=== PATIENT | male | born 1990 | race Caucasian/White ===

== ENCOUNTER 2022-10-06 21:09 | Day surgery (SDC) | payer SELFPAY ==
[2022-10-06 21:44] LABS: APPEARANCE,URINE SLT CLOUDY; BILIRUBIN,URINE NEGATIVE (NEGATIVE); COLOR,URINE YELLOW; GLUCOSE,URINE NEGATIVE (NEGATIVE); KETONES,URINE NEGATIVE (NEGATIVE); LEUKOCYTE ESTERASE,URINE NEGATIVE (NEGATIVE); NITRITE,URINE NEGATIVE (NEGATIVE); OCCULT BLOOD,URINE NEGATIVE (NEGATIVE); PH,URINE 7.5 (5.0-8.0); PROTEIN,URINE NEGATIVE (NEGATIVE); UROBILINOGEN,URINE 0.2 EU/dL (<2.0)
[2022-10-06 21:45] LABS: BASOPHILS PERCENT AUTO 0.1 % (0.0-1.5); EOSINOPHILS PERCENT AUTO 0.3 % (0.0-7.0); HEMATOCRIT 44.6 % (38.0-50.0); HEMOGLOBIN 15.2 g/dL (13.0-17.0); LYMPHOCYTES PERCENT AUTO 13.5 % (16.0-40.0); MEAN CORPUSCULAR HGB CONC 34.1 g/dL (31.0-37.0); MEAN CORPUSCULAR VOLUME 90.8 fL (80.0-98.0); MONOCYTES ABSOLUTE AUTO 0.8 K/uL (0.0-0.8); MONOCYTES PERCENT AUTO 5.6 % (0.0-15.0); NEUTROPHILS PERCENT AUTO 80.5 % (48.0-80.0); NRBC ABSOLUTE 0 K/uL; PLATELET COUNT,PLT 297 K/uL (150-400); RED BLOOD CELL COUNT 4.91 M/uL (4.50-5.90); WHITE BLOOD CELL COUNT,WBC 14.85 K/uL (4.0-11.0)
[2022-10-06] MEDS ORDERED: Ondansetron 4 MG/2 ML SDV IVPUSH ONE (21:53)
[2022-10-06] MEDS ORDERED: Famotidine 20 MG Tab PO ONE (21:54)
[2022-10-06] MEDS ORDERED: Sodium Chloride 0.9% 1,000 ML IV ONE (21:55)
[2022-10-06] MEDS: Morphine 4 MG/ML Syringe IVPUSH PRN (22:03)
[2022-10-06 22:15] LABS: A/G RATIO 1.1 (0.9-1.6); BILIRUBIN TOTAL 0.4 mg/dL (0.2-1.0); CALCIUM 8.9 mg/dL (8.5-10.1); CARBON DIOXIDE,CO2 27.5 mmol/L (21.0-32.0); CREATININE 1.1 mg/dL (0.8-1.3); PROTEIN TOTAL,TP 7.8 g/dL (6.4-8.2)
[2022-10-06] MEDS ORDERED: Iopamidol 755 MG/ML 500 ML Multipack Bottle IVPUSH ONE (22:32)
[2022-10-06] MEDS ORDERED: Sodium Chloride 0.9% 1,000 ML IV STA (23:48)
[2022-10-06] MEDS ORDERED: HYDROmorphone 1 MG/ML Syringe IVPUSH PRN (23:56)
[2022-10-06] MEDS ORDERED: Ondansetron 4 MG/2 ML SDV IVPUSH PRN (23:56)
[2022-10-06] MEDS ORDERED: diphenhydrAMINE 50 MG/ML SDV IVPUSH PRN (23:57)
[2022-10-07] MEDS: Piperacillin/Tazobactam 3.375 GM in Sodium Chloride 0.9% 100 ML IV SCH ×3 (00:05→11:48)
[2022-10-07] MEDS: Morphine 4 MG/ML Syringe IVPUSH PRN ×2 (00:10→03:31)
[2022-10-07] MEDS: Lactated Ringers 1,000 ML IV SCH ×2 (00:39→10:21)
[2022-10-07] MEDS ORDERED: Albuterol 0.083% 2.5 MG/3 ML Neb Soln NEB PRN (07:22)
[2022-10-07] MEDS ORDERED: Naloxone 0.4 MG/ML SDV IVPUSH PRN (07:22)
[2022-10-07] MEDS ORDERED: Morphine 2 MG/ML SYRINGE IVPUSH PRN (07:22)
[2022-10-07] MEDS ORDERED: droPERidol 5 MG/2 ML SDV IVPUSH PRN (07:22)
[2022-10-07] MEDS ORDERED: Metoclopramide 10 MG/2 ML SDV IVPUSH PRN (07:22)
[2022-10-07] MEDS ORDERED: HYDROmorphone 1 MG/ML Syringe IVPUSH PRN (07:22)
[2022-10-07] MEDS ORDERED: Ondansetron 4 MG/2 ML SDV IVPUSH PRN (07:22)
[2022-10-07] MEDS ORDERED: fentaNYL 50 MCG/ML SDV IVPUSH PRN (07:22)
[2022-10-07] MEDS ORDERED: Bupivacaine 0.5% 30 ML SDV ONE (13:24)
[2022-10-07] MEDS ORDERED: Bupivacaine 0.25% 30 ML SDV ONE (13:25)
[2022-10-07] MEDS ORDERED: Ropivacaine 0.5% 5 MG/ML 30 ML SDV ONE (13:25)
[2022-10-07] MEDS ORDERED: EPINEPHrine 1 MG/1 ML Amp ONE (13:25)
[2022-10-07] MEDS ORDERED: Ondansetron 4 MG/2 ML SDV ONE (13:31)
[2022-10-07] MEDS ORDERED: Rocuronium Bromide 50 MG/5 ML Syringe ONE (13:31)
[2022-10-07] MEDS ORDERED: Dexamethasone 4 MG/ML 5 ML MDV ONE (13:31)
[2022-10-07] MEDS ORDERED: Sugammadex Sodium 200 MG/2 ML VIAL ONE (13:31)
[2022-10-07] MEDS ORDERED: Lidocaine 2% 5 ML SDV ONE (13:31)
[2022-10-07] MEDS ORDERED: Propofol 200 MG/20 ML SDV ONE (13:31)
[2022-10-07] MEDS ORDERED: Ketorolac 30 MG/ML SDV ONE (13:31)
[2022-10-07] MEDS ORDERED: fentaNYL 100 MCG/2 ML SDV ONE ×2 (13:32→14:03)
== END 2022-10-07 19:25 | disposition home or self-care (01) ==
LOC: MW.ED 21:09 → MW.SDS 23:45 → MW.MS 10-07 00:06 → MW.SDS 10-07 19:25
PROVIDERS: ATTEND Surgery
DX: K35.30 Acute appendicitis with localized peritonitis, without perforation or gangrene (principal)
CPT/HCPCS: 36415; 44970; 74177; 80053; 81003; 83690; 85025; 93005; 96374; 96375; 96376; 99285; A9270; J0171; J1100; J1885; J2270; J2405; J2543; J2704; J2795; J3010; J3490; J7030; J7120; Q9967; 00840; 64488; 93010; 99283